=== PATIENT | male | born 1950 | race Caucasian/White ===

== ENCOUNTER 2017-01-03 08:41 | Emergency (ER) | payer MEDICAID, MEDICARE ==
[~2017-01-03] VITALS: Ht 182.9 cm; Wt 91.2 kg
[2017-01-03 09:02] VITALS: BP 137/97; PULSE 122; RESP 16; TEMP 98.2; O2SAT 100
--- NOTE | 2017-01-03 09:30 | PD ---
HPI Chief Complaint: General Weakness Time Seen by Provider: 09:23 Travel History International Travel<30 days: No Contact w/Intl Traveler<30days: No Traveled to known affect area: No History of Present Illness HPI Patient is a 66-year-old male who comes in complaining of feeling tired. He says he is caring for his sick and is having trouble sleeping at night. He says that she often wakes him up at all hours of the night and he has trouble falling back to sleep. He says it is hard for him to care for her. He has no specific complaints today. He says he needs something to help him sleep. FOR[facility]LY [facility], LATER [facility] Social History Tobacco Use: Yes Allergies-Medications (Allergen,Severity, Reaction): Coded Allergies: No Known Allergies (Unverified , 01/03/17) Review of Systems General / Constitutional: No: Fever, Chills HENT: No: Headaches, Lightheadedness Cardiovascular: No: Chest Pain or Discomfort Respiratory: No: Shortness of Breath Gastrointestinal: No: Nausea, Vomiting Musculoskeletal: Positive: Arthralgias, No: Myalgias Neurologic: No: Weakness, Dizziness Physical Exam Narrative GENERAL: Awake and alert, in no acute distress. SKIN: Warm and dry. HEAD: Atraumatic. Normocephalic. EYES: Pupils equal and round. No scleral icterus. Extraocular movements intact. NECK: Trachea midline. No JVD. NEUROLOGICAL: Awake and alert. No obvious cranial nerve deficits. Motor grossly within normal limits. Normal speech. PSYCHIATRIC: Appropriate mood and affect; insight and judgment normal. Data Data Last Documented VS Vital Signs Date Time Temp Pulse Resp B/P Pulse Ox O2 Delivery O2 Flow Rate FiO2 01/03/17 09:02 98.2 122 16 137/97 100 MDM Medical Decision Making Medical Screen Exam Complete: Yes Emergency Medical Condition: Yes Differential Diagnosis Fatigue versus sleeplessness versus anemia Narrative Course Patient is a 66-year-old male comes in because he is tired. While talking to the patient, he requested a medication that would "help him sleep for 28 hours. " I explained to him that we did not prescribe sleep medication from the emergency department. He became very angry, he got up and he left. He did this before complete physical exam could be completed or any testing. Diagnosis Primary Impression: Left before treatment completed Condition: Vivi Hernandez MD Jan 03, 2017 09:30
[2017-01-04] MEDS ORDERED: FISH100020 PO (12:14)
[2017-01-04] MEDS ORDERED: IBUP-988 PO (12:14)
[2017-01-04] MEDS ORDERED: VITA500T PO (12:14)
[2017-01-04] MEDS ORDERED: MULT-135 PO (12:14)
[2017-01-04] MEDS ORDERED: LORA-392 PO (12:31)
== END 2017-01-03 09:45 | disposition left against medical advice (07) ==
LOC: PHED 08:41
DX: R53.1 Weakness (principal)
CPT/HCPCS: 99282

== ENCOUNTER 2017-01-04 08:22 | Emergency (ER) | payer MEDICAID, MEDICARE ==
[~2017-01-04] VITALS: Ht 182.9 cm; Wt 88.0 kg
[2017-01-04 08:24] VITALS: BP 136/88; PULSE 124; RESP 24; TEMP 98.1; O2SAT 94
[2017-01-04 08:53] VITALS: BP 131/86; PULSE 105; RESP 20; O2SAT 96
--- NOTE | 2017-01-04 09:07 | PD ---
HPI Chief Complaint: Medical Clearance Time Seen by Provider: 08:48 Travel History International Travel<30 days: No Contact w/Intl Traveler<30days: No Traveled to known affect area: No History of Present Illness HPI 66 years old male complains generalized malaise, poor appetite and insomnia. Patient states that he has been taking care of his at home and he is feeling emotional and physical exhaustion. Patient states that he has poor appetite and unable to sleep much recently. Patient denies any headache. Patient denies any chest pain or shortness of breath. Patient denies abdominal pain. Patient denies any focal weakness or numbness of extremity. PFSH Past Medical History Insomnia: Yes Tetanus Vaccination: > 5 Years Influenza Vaccination: Yes Social History Alcohol Use: Yes (1 SHOT Q 2 WKS) Tobacco Use: No Substance Use: No (HX OF NOT CURRENTLY) Allergies-Medications (Allergen,Severity, Reaction): Coded Allergies: No Known Allergies (Unverified , 01/04/17) Reported Meds & Prescriptions Reported Meds & Active Scripts Active Reported Vitamin C (Ascorbic Acid) 500 Mg Tab 500 Mg PO DAILY Fish Oil 1000 mg ([place]-3 Fatty Acids) 1 Cap Cap 1,000 Mg PO DAILY Multi Vitamin (Multiple Vitamin) 1 Tab Tab 1 Tab PO DAILY Advil (Ibuprofen) 200 Mg Tab 600 Mg PO BID Review of Systems General / Constitutional: No: Fever Eyes: No: Visual changes HENT: No: Headaches Cardiovascular: No: Chest Pain or Discomfort Respiratory: No: Shortness of Breath Gastrointestinal: No: Abdominal Pain Genitourinary: No: Dysuria Musculoskeletal: No: Pain Skin: No Rash Neurologic: No: Weakness Psychiatric: No: Depression Endocrine: No: Polydipsia Hematologic/Lymphatic: No: Easy Bruising Physical Exam Narrative GENERAL: Well-nourished, well-developed patient. SKIN: Warm and dry. HEAD: Normocephalic. EYES: No scleral icterus. No injection or drainage. NECK: Supple, trachea midline. No JVD or lymphadenopathy. CARDIOVASCULAR: Regular rate and rhythm without murmurs, gallops, or rubs. RESPIRATORY: Breath sounds equal bilaterally. No accessory muscle use. GASTROINTESTINAL: Abdomen soft, non-tender, nondistended. MUSCULOSKELETAL: No cyanosis, or edema. BACK: Nontender without obvious deformity. No CVA tenderness. Neurologic exam normal. Data Data Last Documented VS Vital Signs Date Time Temp Pulse Resp B/P Pulse Ox O2 Delivery O2 Flow Rate FiO2 01/04/17 10:22 98.5 91 20 122/79 97 Room Air Orders Electrocardiogram (01/04/17 09:01) Complete Blood Count With Diff (01/04/17 09:01) Comprehensive Metabolic Panel (01/04/17 09:01) Urinalysis - C+S If Indicated (01/04/17 09:01) Chest, Single Ap (01/04/17 09:01) Iv Access Insert/Monitor (01/04/17 09:01) Ecg Monitoring (01/04/17 09:) Oximetry (01/04/17 09:01) Sodium Chlor 0.9% 1000 Ml Inj (Ns 1000 M (01/04/17 09:15) Labs Laboratory Tests Test 01/04/17 01/04/17 01/04/17:15 09:32 11:15 White Blood Count 10.5 TH/MM3 Red Blood Count 4.98 MIL/MM3 Hemoglobin 15.4 GM/DL Hematocrit 45.9 % Mean Corpuscular Volume 92.3 FL Mean Corpuscular Hemoglobin 31.0 PG Mean Corpuscular Hemoglobin 33.5 % Concent Red Cell Distribution Width 13.7 % Platelet Count 281 TH/MM3 Mean Platelet Volume 7.4 FL Neutrophils (%) (Auto) 77.6 % Lymphocytes (%) (Auto) 13.7 % Monocytes (%) (Auto) 8.0 % Eosinophils (%) (Auto) 0.4 % Basophils (%) (Auto) 0.3 % Neutrophils # (Auto) 8.2 TH/MM3 Lymphocytes # (Auto) 1.4 TH/MM3 Monocytes # (Auto) 0.8 TH/MM3 Eosinophils # (Auto) 0.0 TH/MM3 Basophils # (Auto) 0.0 TH/MM3 CBC Comment DIFF FINAL Differential Comment Urine Color YELLOW Urine Turbidity CLEAR Urine pH 5.5 Urine Specific Petroleum 1.023 Urine Protein TRACE mg/dL Urine Glucose (UA) NEG mg/dL Urine Ketones NEG mg/dL Urine Occult Blood NEG Urine Nitrite NEG Urine Bilirubin NEG Urine Urobilinogen LESS THAN 2.0 MG/DL Urine Leukocyte Esterase NEG Urine RBC LESS THAN 1 /hpf Urine WBC 1 /hpf Urine Calcium Oxalate Crystals RARE /hpf Urine Bacteria OCC /hpf Urine Hyaline Casts 1 /lpf Urine Mucus FEW /lpf Microscopic Urinalysis Comment CULT NOT INDICATED Sodium Level 143 MEQ/L Potassium Level 3.9 MEQ/L Chloride Level 110 MEQ/L Carbon Dioxide Level 22.2 MEQ/L Anion Gap 11 MEQ/L Blood Urea Nitrogen 21 MG/DL Creatinine 0.81 MG/DL Estimat Glomerular Filtration 95 ML/MIN Rate Random Glucose 100 MG/DL Calcium Level 9.5 MG/DL Total Bilirubin 0.7 MG/DL Aspartate Amino Transf 19 U/L (AST/SGOT) Alanine Aminotransferase 43 U/L (ALT/SGPT) Alkaline Phosphatase 70 U/L Total Protein 8.0 GM/DL Albumin 4.3 GM/DL MDM Medical Decision Making Medical Screen Exam Complete: Yes Emergency Medical Condition: Yes Interpretation(s) Last Impressions Chest X-Ray 01/04/17900 Signed Impressions: Service Date/Time: Wednesday, January 04, 2017 09:12 - CONCLUSION: No acute disease. Mild elevation left hemidiaphragm indeterminate chronicity Alan Urias MD 12:24 PM. CBC within normal limit. CMP within normal limit. BUN 21. UA is negative. Differential Diagnosis Differential diagnosis including mental's exhaustion, physical exhaustion, dehydration, electrolyte abnormality Narrative Course 66 years old male with generalized malaise, insomnia, poor appetite. Patient's under a lot of physical mental stress recently. Normal saline solution 1 L IV bolus. Diagnosis Primary Impression: Dehydration Additional Impression: Adjustment disorder Qualified Code: F43.20 - Adjustment disorder, unspecified type Patient Instructions: General Instructions Additional Instructions: Short course of Ativan if needed. Advised patient to follow local physician and psychiatrist. Return if worse. Advised patient increase by mouth fluid intake. Med/Other Pt SpecificInfo: Prescription(s) given Scripts Lorazepam (Ativan)0.5 Mg Tab0.5 Mg PO Q8H PRN (ANXIETY AND/OR AGITATION) #10 TAB Ref 0 Prov:Amrik Moreno MD 01/04/17 Disposition: 01 DISCHARGE HOME Condition: Stable Amrik Moreno MD Jan 04, 2017 09:07 Prov:Amrik Moreno MD 01/04/17 Disposition: 01 DISCHARGE HOME Condition: Stable Amrik Moreno MD Jan 04, 2017 09:07
[2017-01-04] MEDS ORDERED: SODIUM CHLOR 0.9% 1000 ML INJ 1,000 ML IV ONE (09:15)
--- NOTE | 2017-01-04 09:25 | RADRPT ---
EXAM DATE/TIME: 01/04/2017 09:12 [facility] COMPARISON: No previous studies available for comparison. INDICATIONS : Short of breath, fatigue, weakness for 4 days, no known history of heart or lung problems MEDICAL HISTORY : None. SURGICAL HISTORY : None. ENCOUNTER: Initial ACUITY: 4 - 6 days PAIN SCORE: 0/10 LOCATION: Bilateral chest FINDINGS: A single view of the chest demonstrates the lungs to be symmetrically aerated without evidence of mas s, infiltrate or effusion. The cardiomediastinal contours are unremarkable with mild unwinding of th e aorta. Osseous structures are intact with hypertrophic spurring right-sided lower thoracic spine.. There is elevation of the left hemidiaphragm of indeterminate chronicity and etiology CONCLUSION: No acute disease. Mild elevation left hemidiaphragm indeterminate chronicity Alan Urias MD on January 04, 2017 at 9:23 Board Certified Radiologist. This report was verified electronically.
[2017-01-04 09:32] VITALS: BP 131/86; PULSE 108; RESP 20; O2SAT 96
[2017-01-04 09:54] LABS: AUTOMATED NEUTROPHIL # 8.2 TH/MM3 (1.8-7.7); BASOPHIL % 0.3 % (0.0-2.0); EOSINOPHIL % 0.4 % (0.0-4.0); HEMATOCRIT 45.9 % (39.0-51.0); HEMO FLAGS DIFF FINAL; LYMPH % 13.7 % (9.0-44.0); LYMPHOCYTE # 1.4 TH/MM3 (1.0-4.8); MEAN CELL VOLUME 92.3 FL (80.0-100.0); MEAN CORPUSCULAR HGB CONC 33.5 % (32.0-36.0); NEUT % 77.6 % (16.0-70.0); PLATELET COUNT 281 TH/MM3 (150-450); RED BLOOD COUNT 4.98 MIL/MM3 (4.50-5.90); RED CELL DISTRIBUTION WIDTH 13.7 % (11.6-17.2); WHITE BLOOD COUNT 10.5 TH/MM3 (4.0-11.0)
[2017-01-04 09:55] LABS: BACTERIA, URINE OCC /hpf; BLOOD, URINE NEG (NEG); CALCIUM OXALATE CRYSTALS,URINE RARE /hpf; COMMENT (UR) CULT NOT INDICATED; CULTURE IF INDICATED CULT NOT INDICATED; GLUCOSE,URINE NEG (NEG); HYALINE CAST, URINE 1 /lpf (RARE); KETONE, URINE NEG (NEG); MUCUS URINE FEW /lpf (OCC); NITRITE,URINE NEG (NEG); PH, URINE 5.5 (5.0-8.5); URINE COLOR YELLOW (YELLW/STRAW)
[2017-01-04 10:15] LABS: ALKALINE PHOSPHATASE 70 U/L (45-117); ALT (GPT) 43 U/L (12-78); TOTAL BILIRUBIN ADULT 0.7 MG/DL (0.2-1.0)
[2017-01-04 10:22] VITALS: BP 122/79; PULSE 91; RESP 20; TEMP 98.5; O2SAT 97
[2017-01-04 12:09] LABS: ANION GAP 11 MEQ/L (5-15); AST (GOT) 19 U/L (15-37); BICARBONATE 22.2 MEQ/L (21.0-32.0); BLOOD UREA NITROGEN 21 MG/DL (7-18); CHLORIDE 110 MEQ/L (98-107); GLOMERULAR FILTRATION RATE 95 ML/MIN (>89); POTASSIUM 3.9 MEQ/L (3.5-5.1); SODIUM (NA) 143 MEQ/L (136-145)
[2017-01-04] MEDS ORDERED: MULT-135 PO (12:14)
[2017-01-04] MEDS ORDERED: IBUP-988 PO (12:14)
[2017-01-04] MEDS ORDERED: VITA500T PO (12:14)
[2017-01-04] MEDS ORDERED: FISH100020 PO (12:14)
[2017-01-04] MEDS ORDERED: LORA-392 PO (12:31)
[2017-01-04 13:34] VITALS: BP 142/79
--- NOTE | 2017-01-04 14:15 | EKG ---
Date Performed: 01/04/2017 Time Performed: 09:54:12 PTAGE: 66 years EKG: Sinus rhythm MARKED LEFT AXIS DEVIATION ABNORMAL ECG NO PREVIOUS TRACING DOCTOR: Ronaldo Maldonado Interpretating Date/Time 01/04/2017 14:12:27
== END 2017-01-04 13:40 | disposition home or self-care (01) ==
LOC: NEPC 08:22
DX: E86.0 Dehydration (principal); R94.31 Abnormal electrocardiogram [ECG] [EKG]; F43.20 Adjustment disorder, unspecified
CPT/HCPCS: 71010; 80053; 81001; 85025; 93005; 99284; J7030